=== PATIENT | female | born 1945 | race Caucasian/White ===

== ENCOUNTER 2017-03-26 10:08 | Outpatient (CLI) | payer MEDICARE, BC ==
[2017-03-26 10:30] VITALS: BP 153/71
[2017-03-26 11:00] VITALS: BP 142/70
[2017-03-26 11:30] VITALS: BP 118/70
[2017-03-27] MEDS ORDERED: FERROUS SULFAT325 M2 PO (10:18)
[2017-03-27] MEDS ORDERED: PANTOPRAZOLE SO40 MG PO (10:24)
[2017-03-27] MEDS ORDERED: CYMBALTA30 M1 PO (10:24)
[2017-03-27] MEDS ORDERED: LIPITOR40 MG PO (10:28)
[2017-03-27] MEDS ORDERED: TRAMADOL 50MG T50 M1 PO (10:29)
[2017-03-27] MEDS ORDERED: MULTI VITAMINS1 TA1 PO (10:39)
[2017-03-27] MEDS ORDERED: CALCIUM,MAG, ZINC PO (10:41)
[2017-03-27] MEDS ORDERED: SUPER B COMPLEX1 CAP PO (10:43)
[2017-03-27] MEDS ORDERED: OMEGA-3 KRILL1 EAC1 PO (10:43)
[2017-03-27] MEDS ORDERED: VITAMIN D1000 IU PO (10:44)
== END 2017-03-26 11:00 | disposition home or self-care (01) ==
LOC: COP 10:08
DX: D50.0 Iron deficiency anemia secondary to blood loss (chronic) (principal); K92.2 Gastrointestinal hemorrhage, unspecified; T45.4X5A Adverse effect of iron and its compounds, initial encounter
CPT/HCPCS: J1756

== ENCOUNTER 2017-03-27 09:51 | Outpatient (CLI) | payer MEDICARE, BC ==
[2017-03-27] MEDS ORDERED: FERROUS SULFAT325 M2 PO (10:18)
[2017-03-27] MEDS ORDERED: PANTOPRAZOLE SO40 MG PO (10:24)
[2017-03-27] MEDS ORDERED: CYMBALTA30 M1 PO (10:24)
[2017-03-27] MEDS ORDERED: LIPITOR40 MG PO (10:28)
[2017-03-27] MEDS ORDERED: TRAMADOL 50MG T50 M1 PO (10:29)
[2017-03-27 10:30] VITALS: BP 147/79
[2017-03-27] MEDS ORDERED: MULTI VITAMINS1 TA1 PO (10:39)
[2017-03-27] MEDS ORDERED: CALCIUM,MAG, ZINC PO (10:41)
[2017-03-27] MEDS ORDERED: SUPER B COMPLEX1 CAP PO (10:43)
[2017-03-27] MEDS ORDERED: OMEGA-3 KRILL1 EAC1 PO (10:43)
[2017-03-27] MEDS ORDERED: VITAMIN D1000 IU PO (10:44)
[2017-03-27 11:10] VITALS: BP 149/75
[2017-03-28] MEDS ORDERED: LORATADINE 10MG10 M1 PO (10:47)
== END 2017-03-27 11:15 | disposition home or self-care (01) ==
LOC: COP 09:51
DX: D50.0 Iron deficiency anemia secondary to blood loss (chronic) (principal); K92.2 Gastrointestinal hemorrhage, unspecified; T45.4X5A Adverse effect of iron and its compounds, initial encounter
CPT/HCPCS: J1756

== ENCOUNTER 2017-03-28 10:10 | Outpatient (CLI) | payer MEDICARE, BC ==
[~2017-03-28] VITALS: Ht 175.3 cm; Wt 92.5 kg
[~2017-03-28 10:10] MED LIST: CALCIUM,MAG, ZINC PO; CYMBALTA30 M1 PO; FERROUS SULFAT325 M2 PO; LIPITOR40 MG PO; MULTI VITAMINS1 TA1 PO; OMEGA-3 KRILL1 EAC1 PO; PANTOPRAZOLE SO40 MG PO; SUPER B COMPLEX1 CAP PO; TRAMADOL 50MG T50 M1 PO; VITAMIN D1000 IU PO
[2017-03-28 10:45] VITALS: BP 146/78
[2017-03-28] MEDS ORDERED: LORATADINE 10MG10 M1 PO (10:47)
[2017-03-28 11:15] VITALS: BP 137/79
== END 2017-03-28 11:30 | disposition home or self-care (01) ==
LOC: COP 10:10
DX: D50.0 Iron deficiency anemia secondary to blood loss (chronic) (principal); K92.2 Gastrointestinal hemorrhage, unspecified; T45.4X5A Adverse effect of iron and its compounds, initial encounter
CPT/HCPCS: J1756

== ENCOUNTER 2017-04-02 10:00 | Outpatient (CLI) | payer MEDICARE, BC ==
[~2017-04-02 10:00] MED LIST changes: +LORATADINE 10MG10 M1 PO
[2017-04-02 10:13] VITALS: BP 125/84
[2017-04-02 10:43] VITALS: BP 122/81
[2017-04-02 11:04] VITALS: BP 119/79
== END 2017-04-02 11:08 | disposition home or self-care (01) ==
LOC: COP 10:00
DX: D50.0 Iron deficiency anemia secondary to blood loss (chronic) (principal); K92.2 Gastrointestinal hemorrhage, unspecified; T45.4X5A Adverse effect of iron and its compounds, initial encounter
CPT/HCPCS: J1756

== ENCOUNTER 2017-04-04 09:45 | Outpatient (CLI) | payer MEDICARE, BC ==
[2017-04-04 10:01] VITALS: BP 111/78
[2017-04-04 10:45] VITALS: BP 121/74
== END 2017-04-04 10:55 | disposition home or self-care (01) ==
LOC: COP 09:45
DX: D50.0 Iron deficiency anemia secondary to blood loss (chronic) (principal); K92.2 Gastrointestinal hemorrhage, unspecified; T45.4X5A Adverse effect of iron and its compounds, initial encounter
CPT/HCPCS: J1756